=== PATIENT | female | born 1950 | race Asian ===

== ENCOUNTER 2017-04-25 13:17 | Outpatient (CLI) | payer OTHER | END 2017-04-25 21:42 | disposition home or self-care (01) | LOC: MAMMO 13:17 | DX: Z12.31 Encounter for screening mammogram for malignant neoplasm of breast (principal) ==

== ENCOUNTER 2018-04-30 09:19 | Outpatient (CLI) | payer OTHER | END 2018-04-30 19:04 | disposition home or self-care (01) | LOC: MAMMO 09:19 | DX: Z12.31 Encounter for screening mammogram for malignant neoplasm of breast (principal) ==